=== PATIENT | female | born 1985 | race Caucasian/White ===

== ENCOUNTER 2021-08-19 20:44 | Emergency (ER) | payer OTHER ==
[2021-08-19 21:28] LABS: HEMOGLOBIN 15.3 gm/dl (12.3-15.3); RED BLOOD COUNT 4.84 M/UL (4.00-5.10); WHITE BLOOD COUNT 7.5 K/UL (4.5-11.0)
[2021-08-19 21:49] LABS: BUN/CREATININE RATIO 9 (0-10)
== END 2021-08-20 04:19 | disposition home or self-care (01) ==
LOC: ER1 20:44
PROVIDERS: Family Medicine
DX: K42.9 Umbilical hernia without obstruction or gangrene (principal); E87.6 Hypokalemia
CPT/HCPCS: 80053; 81001; 83690; 85025; 99284